=== PATIENT | female | born 1965 | race Caucasian/White ===

== ENCOUNTER → 2016-08-07 | Outpatient (CLI) | payer BC ==
[~2016-08-07] MED LIST: ASCO10003 PO; CALCTAB65 PO; CLR10 PO; ETAN50IN3 SC; FLNIN NAE; FOLI1TAB7 PO; METH2.5T PO; MULTTAB58 PO; ONDA4TAB10 SL; OXYC-57 PO; SPIR25TA PO; SPIR50TA3 PO; TAMS0.4C38 PO; VALA1TAB31 PO
--- NOTE | 2016-08-07 14:57 | DIAGNOSTIC IMAGING REPORT ---
KUB CLINICAL HISTORY: Right-sided nephrolithiasis. FINDINGS: 2 AP abdominal radiographs are correlated with abdominal CT dated 08/04/2016. There is a nonobstructed abdominal bowel gas pattern. A 4 mm calculus projecting over the right vesicoureteral junction is unchanged. No additional calcifications are seen projecting over either kidney. Calcified phleboliths are seen in the pelvis. An intrauterine device is in place. The bony structures appear intact. IMPRESSION: Unchanged appearance of a 4 mm calculus at the right vesicoureteral junction as compared to 08/04/[address] Electronically signed by: Kai Murrieta M.D. 08/07/2016 2:55 PM Dictated Date/Time: 08/07/2016 2:53 PM
--- NOTE | 2016-08-07 16:02 | DIAGNOSTIC IMAGING REPORT ---
CHEST 2 VIEWS ROUTINE CLINICAL HISTORY: Preoperative chest COMPARISON STUDY: No previous studies for comparison. FINDINGS: The cardiac and mediastinal contours are normal. There is no evidence of focal pulmonary consolidation. There is no evidence of failure. There is a trace right pleural effusion. IMPRESSION: Trace right pleural effusion. No evidence of failure. No evidence of focal pulmonary consolidation. Electronically signed by: Pete Dubois M.D. 08/07/2016 3:59 PM Dictated Date/Time: 08/07/2016 3:59 PM
== END | disposition home or self-care (01) ==
LOC: C.RAD 14:07
PROVIDERS: ATTEND Nurse Practitioner Adult Health
DX: N20.0 Calculus of kidney (principal); N20.1 Calculus of ureter

== ENCOUNTER → 2016-08-09 | Day surgery (SDC) | payer BC ==
[2016-08-08 09:37] VITALS: Ht 162.6 cm; Wt 64.5 kg
[~2016-08-09] VITALS: Ht 162.6 cm; Wt 64.5 kg
[~2016-08-09] MED LIST changes: +ATROPINE SULFATE 0.1 MG/ML 5ML SYR IV PRN; +CIPROFLOXACIN 400MG / D5W IV SCH; +EpHEDrine SULFATE INJ 50 MG/ML AMP IV PRN; +FENTANYL CITRATE INJ 50 MCG/1 ML 2 ML VIAL IV PRN; +LACTATED RINGER'S 1000ML 1,000 ML IV SCH; +ONDANSETRON INJ 2 MG/ML 2 ML VIAL IV PRN; -SPIR25TA PO
--- NOTE | 2016-08-09 12:02 | DIAGNOSTIC IMAGING REPORT ---
KUB HISTORY: Nephrolithiasis. COMPARISON: KUB 08/07/2016. FINDINGS: The bowel gas pattern is unremarkable. There are no dilated loops of small bowel to suggest an obstruction. There is an intrauterine device which is unchanged in position. The punctate stone within the right deep pelvis seen on the prior study is no longer visualized. This may have passed in the interval. Additional punctate calcifications in the deep pelvis remain stable and are consistent with phleboliths. No renal calculi visualized. No pneumoperitoneum or pneumatosis. IMPRESSION: The right ureterovesical junction stone is no longer visualized and may have passed in the interval. Electronically signed by: Sekou Krause M.D. 08/09/2016 12:00 PM Dictated Date/Time: 08/09/2016 11:58 AM
[2016-08-09 12:04] VITALS: BP 109/71; PULSE 64; TEMP 37; O2SAT 96
--- NOTE | 2016-08-09 12:38 | History & Physical Bridge Note ---
H&P Re-Evaluation Bridge Note: I have examined the patient, reviewed the History & Physical and in the interval since the performance of the History & Physical I have noted the following changes of clinical significance: No changes noted
== END | disposition home or self-care (01) ==
LOC: X.SURG 11:42
PROVIDERS: ATTEND Urology
DX: N20.0 Calculus of kidney (principal); Z53.9 Procedure and treatment not carried out, unspecified reason; N20.1 Calculus of ureter; Z98.890 Other specified postprocedural states; Z82.49 Family history of ischemic heart disease and other diseases of the circulatory system; Z80.3 Family history of malignant neoplasm of breast